=== PATIENT | female | born 1965 | race Caucasian/White ===

== ENCOUNTER → 2016-11-07 | Outpatient (CLI) | payer BC ==
[~2016-11-07] MED LIST: AMBIEN10 M1 PO; CYMBALTA60 MG PO; PERCOCET 325 MG1 TA2 PO; ZANTAC 300300 MG PO; ZYRTEC10 MG PO
== END ==
LOC: CARD 07:54
DX: R00.2 Palpitations (principal)

== ENCOUNTER → 2016-11-13 | Outpatient (CLI) | payer BC ==
[~2016-11-13] MED LIST changes: +CRESTOR10 M1 PO; +CYMBALTA20 M1 PO; +IBUPROFEN600 MG PO; +REXULTI0.5 MG PO; +VITAMIN D-32000 UNI1 PO; +ZANTAC 150150 MG PO
--- NOTE | ~2016-11-13 | ST ---
[place], [place] EXERCISE STRESS TEST REPORT NAME[facility]: [id number] UNIT #: [id number] ROOM: DOCTOR: BRIDGET ROSE MD BIRTHDATE: [birth year] DOS: 11/13/2016 The patient walked on the [place] protocol for about 4 minutes 30 seconds. Heart rate is 166. She is negative for chest pain. Normal heart rate and BP response. No EKG changes with exercise. No chest pain with exercise. No dysrhythmia with exercise. Blood pressure and heart rate response was normal with adequate double product. FINAL IMPRESSION: Normal exercise stress test without any EKG evidence of ischemia. Blood pressure and heart rate response was normal with adequate double product. The patient is stable with normal double product and normal EKG response. BRIDGET ROSE MD CM:STRESS:EXERCISE STRESS TEST REPORT [id number] BRIDGET ROSE MD
== END ==
LOC: CARD 03:31
DX: R00.2 Palpitations (principal); E78.4 Other hyperlipidemia

== ENCOUNTER 2017-08-04 14:36 | Emergency (ER) | payer BC ==
[~2017-08-04] VITALS: Ht 170.1 cm; Wt 90.7 kg
[2017-08-04] MEDS ORDERED: AMITRIPTYLINE25 MG PO (15:30)
[2017-08-04 15:48] LABS: BASO % 0.4 % (0.0-1.0); EOS # 0.2 10*3/uL (0.0-0.4); EOS % 2.2 % (1.0-4.0); HEMATOCRIT 37.6 % (37.0-47.0); HEMOGLOBIN 12.3 g/dl (12.0-16.0); LYMPH # 2.2 10*3/uL (1.3-4.4); LYMPH % 20.5 % (27.0-41.0); MEAN CELL VOLUME 87.9 fl (81.0-99.0); MEAN CORPUSCULAR HGB 28.7 pg (27.0-31.0); MEAN CORPUSCULAR HGB CONC 32.7 g/dl (33.0-37.0); MEAN PLATELET VOLUME 11.1 fl (9.6-12.3); MONO # 0.7 10*3/uL (0.1-1.0); MONO % 6.2 % (3.0-9.0); NEUT # 7.5 10*3/uL (2.3-7.9); NEUT % 70.3 % (47.0-73.0); PLATELET COUNT AUTOMATED 222 10*3/uL (130-400); RED BLOOD COUNT 4.28 10*6/uL (4.10-5.10); RED CELL DISTRI WIDTH 12.5 % (0-14.5); WHITE BLOOD COUNT 10.6 10*3/uL (4.8-10.8)
[2017-08-04 16:02] LABS: ALBUMIN 3.9 gm/dl (3.1-4.5); ALKALINE PHOSPHATASE 121 U/L (45-117); BUN 15 mg/dl (7-24); CHLORIDE 105 mmol/L (98-107); CREATININE 0.92 mg/dL (0.55-1.02); SGOT/AST 33 IU/L (3-35); SGPT/ALT 38 U/L (12-78); SODIUM 141 mmol/L (136-145); TOTAL PROTEIN 7.6 gm/dL (6.4-8.2)
[2017-08-04] MEDS ORDERED: ZOFRAN4 MG PO (17:16)
[2017-08-04] MEDS ORDERED: CLINDAMYCIN150 MG PO (17:16)
== END 2017-08-04 17:28 | disposition home or self-care (01) ==
LOC: ED 14:36
PROVIDERS: Nurse Practitioner Family
DX: K11.20 Sialoadenitis, unspecified (principal); Z88.0 Allergy status to penicillin; Z88.2 Allergy status to sulfonamides; Z88.6 Allergy status to analgesic agent; Z88.1 Allergy status to other antibiotic agents; Z79.899 Other long term (current) drug therapy

== ENCOUNTER 2019-06-15 18:33 | Emergency (ER) | payer BC ==
[~2019-06-15] VITALS: Ht 172.7 cm; Wt 97.1 kg
[~2019-06-15 18:33] MED LIST changes: +AMITRIPTYLINE25 MG PO; +CLINDAMYCIN150 MG PO; +ZOFRAN4 MG PO
[2019-06-15] MEDS ORDERED: PREDNISONE20 M1 PO (21:18)
== END 2019-06-15 21:18 | disposition home or self-care (01) ==
LOC: ED 18:33
PROVIDERS: Physician Assistant
DX: L50.9 Urticaria, unspecified (principal); R53.83 Other fatigue; R53.1 Weakness; R51 Headache; K21.9 Gastro-esophageal reflux disease without esophagitis; E78.00 Pure hypercholesterolemia, unspecified; Z79.899 Other long term (current) drug therapy; Z88.0 Allergy status to penicillin; Z88.2 Allergy status to sulfonamides; Z88.6 Allergy status to analgesic agent; Z88.1 Allergy status to other antibiotic agents

== ENCOUNTER → 2019-07-02 | Outpatient (CLI) | payer BC ==
[~2019-07-02] MED LIST changes: +MEDROL DOSEPAK4 MG PO; +PREDNISONE20 M1 PO
[2019-07-03 11:11] LABS: ANTI-DSDNA ANTIBODIES 096339 5 IU/mL (0-9); ANTI-RNP ANTIBODIES 0.3 AI (0.0-0.9); SJOGREN ANTI-SS-A <0.2 AI (0.0-0.9); SJOREN AB, ANTI-SS-B <0.2 AI (0.0-0.9)
[2019-07-03 12:07] LABS: COMPLEMENT C4 001834 23 mg/dL (14-44)
[2019-07-03 16:09] LABS: ATYPICAL PANCA <1:20 titer (Neg:<1:20); CYTOPLASMIC (C-ANCA) <1:20 titer (Neg:<1:20)
[2019-07-03 17:11] LABS: RHEUMATOID ARTHRITIS FACTOR <10.0 IU/mL (0.0-13.9)
[2019-07-05 21:06] LABS: IMMUNOGLOBULIN IgE 002170 10 IU/mL (6-495)
[2019-07-06 02:06] LABS: TRYPTASE 004280 6.9 ug/L (2.2-13.2)
== END | disposition home or self-care (01) ==
LOC: LAB 15:50
PROVIDERS: Allergy & Immunology
DX: M35.9 Systemic involvement of connective tissue, unspecified (principal); L50.8 Other urticaria

== ENCOUNTER 2019-07-07 02:55 | Emergency (ER) | payer BC ==
[~2019-07-07] VITALS: Ht 172.7 cm; Wt 97.1 kg
[~2019-07-07 02:55] MED LIST changes: -MEDROL DOSEPAK4 MG PO
[2019-07-07] MEDS ORDERED: MEDROL DOSEPAK4 MG PO (05:51)
[2019-07-21] MEDS ORDERED: MEDROL DOSEPAK4 MG PO (10:44)
== END 2019-07-07 06:16 | disposition home or self-care (01) ==
LOC: ED 02:55
DX: L50.9 Urticaria, unspecified (principal); Z98.890 Other specified postprocedural states; Z90.49 Acquired absence of other specified parts of digestive tract; Z79.899 Other long term (current) drug therapy; Z88.0 Allergy status to penicillin; Z88.2 Allergy status to sulfonamides; Z88.6 Allergy status to analgesic agent; Z88.1 Allergy status to other antibiotic agents

== ENCOUNTER → 2019-07-21 | Emergency (ER) | payer BC ==
[~2019-07-21] VITALS: Ht 172.7 cm; Wt 99.3 kg
[~2019-07-21] MED LIST changes: +MEDROL DOSEPAK4 MG PO
== END ==
LOC: ED 07:19
DX: L50.1 Idiopathic urticaria (principal); K21.9 Gastro-esophageal reflux disease without esophagitis; E78.00 Pure hypercholesterolemia, unspecified; Z88.0 Allergy status to penicillin; Z88.2 Allergy status to sulfonamides; Z88.6 Allergy status to analgesic agent; Z88.1 Allergy status to other antibiotic agents; Z79.899 Other long term (current) drug therapy

== ENCOUNTER → 2019-08-11 | Outpatient (CLI) | payer BC | END | disposition home or self-care (01) | LOC: RAD 09:10 | DX: S00.93XA Contusion of unspecified part of head, initial encounter (principal); S00.10XA Contusion of unspecified eyelid and periocular area, initial encounter; W01.198A Fall on same level from slipping, tripping and stumbling with subsequent striking against other object, initial encounter; G89.11 Acute pain due to trauma ==

== ENCOUNTER 2019-08-18 22:02 | Inpatient (IN) | payer BC ==
[~2019-08-18] VITALS: Ht 172.7 cm; Wt 100.7 kg
[2019-08-18 22:05] VITALS: BP 114/49
[2019-08-18 23:20] LABS: BASO % 0.2 % (0.0-1.0); EOS % 0.3 % (1.0-4.0); HEMOGLOBIN 13.3 g/dl (12.0-16.0); LYMPH # 2.1 10*3/uL (1.3-4.4); LYMPH % 21.4 % (27.0-41.0); MEAN CELL VOLUME 89.8 fl (81.0-99.0); MEAN CORPUSCULAR HGB 27.8 pg (27.0-31.0); MEAN CORPUSCULAR HGB CONC 30.9 g/dl (33.0-37.0); MEAN PLATELET VOLUME 9.9 fl (9.6-12.3); MONO # 0.4 10*3/uL (0.1-1.0); MONO % 3.7 % (3.0-9.0); NEUT # 7.1 10*3/uL (2.3-7.9); NEUT % 73.2 % (47.0-73.0); PLATELET COUNT AUTOMATED 209 10*3/uL (130-400); RED BLOOD COUNT 4.79 10*6/uL (4.10-5.10); RED CELL DISTRI WIDTH 13.4 % (0-14.5); WHITE BLOOD COUNT 9.7 10*3/uL (4.8-10.8)
[2019-08-18 23:26] VITALS: BP 100/56
[2019-08-18 23:40] LABS: ALBUMIN 3.6 gm/dl (3.1-4.5); ALKALINE PHOSPHATASE 107 U/L (45-117); BUN 20 mg/dl (7-24); CHLORIDE 108 mmol/L (98-107); CREATININE 0.89 mg/dL (0.55-1.02); POTASSIUM 3.7 mmol/L (3.5-5.1); SGOT/AST 17 IU/L (3-35); SGPT/ALT 39 U/L (12-78); SODIUM 140 mmol/L (136-145); TOTAL PROTEIN 6.8 gm/dL (6.4-8.2)
[2019-08-19] VITALS: BP 117/65
[2019-08-19] MEDS ORDERED: XYZAL5 M1 PO (00:38)
[2019-08-19] MEDS ORDERED: ATARAX,VISTARIL50 MG PO (00:39)
[2019-08-19 04:00] VITALS: BP 106/64
[2019-08-19 05:56] LABS: BUN 17 mg/dl (7-24); CHLORIDE 110 mmol/L (98-107); CHOLESTEROL 171 mg/dL (<200); CREATININE 0.81 mg/dL (0.55-1.02); HDL CHOLESTEROL 86 mg/dl (40-60); LDL CHOLESTEROL 74 mg/dL (9-159); PHOSPHOROUS 2.8 mg/dL (2.5-4.9); POTASSIUM 4.4 mmol/L (3.5-5.1); SODIUM 140 mmol/L (136-145); TRIGLYCERIDES 54 mg/dl (<150); VLDL CHOLESTEROL 11 mg/dL (6-40)
[2019-08-19 07:08] LABS: HEMATOCRIT 39.1 % (37.0-47.0); HEMOGLOBIN 12.2 g/dl (12.0-16.0); MEAN CELL VOLUME 88.7 fl (81.0-99.0); MEAN CORPUSCULAR HGB 27.7 pg (27.0-31.0); MEAN CORPUSCULAR HGB CONC 31.2 g/dl (33.0-37.0); MEAN PLATELET VOLUME 10.5 fl (9.6-12.3); PLATELET COUNT AUTOMATED 263 10*3/uL (130-400); RED BLOOD COUNT 4.41 10*6/uL (4.10-5.10); RED CELL DISTRI WIDTH 13.4 % (0-14.5); WHITE BLOOD COUNT 9.5 10*3/uL (4.8-10.8)
[2019-08-19 08:00] VITALS: BP 107/55
[2019-08-19 08:26] LABS: PLATELET SUFFICIENCY NORMAL (NORMAL); TOTAL CELLS COUNTED 100 #CELLS
[2019-08-19 12:00] VITALS: BP 108/58
[2019-08-19 16:00] VITALS: BP 109/58
[2019-08-19 20:00] VITALS: BP 117/62
[2019-08-20] VITALS: BP 104/53
[2019-08-20 04:00] VITALS: BP 106/56
[2019-08-20 05:06] LABS: BASO % 0.1 % (0.0-1.0); HEMATOCRIT 36.6 % (37.0-47.0); HEMOGLOBIN 11.5 g/dl (12.0-16.0); LYMPH # 1.2 10*3/uL (1.3-4.4); LYMPH % 8.7 % (27.0-41.0); MEAN CELL VOLUME 89.5 fl (81.0-99.0); MEAN CORPUSCULAR HGB 28.1 pg (27.0-31.0); MEAN CORPUSCULAR HGB CONC 31.4 g/dl (33.0-37.0); MEAN PLATELET VOLUME 10.3 fl (9.6-12.3); MONO # 0.3 10*3/uL (0.1-1.0); MONO % 2.1 % (3.0-9.0); NEUT # 11.9 10*3/uL (2.3-7.9); NEUT % 87.6 % (47.0-73.0); PLATELET COUNT AUTOMATED 275 10*3/uL (130-400); RED BLOOD COUNT 4.09 10*6/uL (4.10-5.10); RED CELL DISTRI WIDTH 13.4 % (0-14.5); WHITE BLOOD COUNT 13.6 10*3/uL (4.8-10.8)
[2019-08-20 05:19] LABS: BUN 16 mg/dl (7-24); CHLORIDE 113 mmol/L (98-107); CREATININE 0.76 mg/dL (0.55-1.02); POTASSIUM 3.7 mmol/L (3.5-5.1); SODIUM 144 mmol/L (136-145)
[2019-08-20 08:00] VITALS: BP 110/70
[2019-08-20] MEDS ORDERED: PREDNISONE10 MG PO (08:38)
[2019-08-20] MEDS ORDERED: PEPCID40 MG PO (08:38)
== END 2019-08-20 09:38 | disposition home or self-care (01) | DRG 607 ==
LOC: ED 22:02 → ICCU 22:55 → EDHOLD 22:55 → ICCU 23:57
PROVIDERS: Internal Medicine; Physician Assistant; ADMIT Family Medicine
DX: L50.1 Idiopathic urticaria (principal); F33.9 Major depressive disorder, recurrent, unspecified; E87.8 Other disorders of electrolyte and fluid balance, not elsewhere classified; R09.89 Other specified symptoms and signs involving the circulatory and respiratory systems; K21.9 Gastro-esophageal reflux disease without esophagitis; F41.9 Anxiety disorder, unspecified; E78.5 Hyperlipidemia, unspecified; R73.9 Hyperglycemia, unspecified; R73.03 Prediabetes; E83.41 Hypermagnesemia; D64.9 Anemia, unspecified; R11.0 Nausea; Z88.0 Allergy status to penicillin; Z88.2 Allergy status to sulfonamides; Z88.6 Allergy status to analgesic agent; Z88.1 Allergy status to other antibiotic agents; Z90.49 Acquired absence of other specified parts of digestive tract; Z82.49 Family history of ischemic heart disease and other diseases of the circulatory system; Z82.3 Family history of stroke; Z82.0 Family history of epilepsy and other diseases of the nervous system; Z79.899 Other long term (current) drug therapy; D72.829 Elevated white blood cell count, unspecified; R00.0 Tachycardia, unspecified

== ENCOUNTER → 2019-08-27 | Outpatient (CLI) | payer BC ==
[~2019-08-27] MED LIST changes: +ATARAX,VISTARIL50 MG PO; +PEPCID40 MG PO; +PREDNISONE10 MG PO; +XYZAL5 M1 PO
== END | disposition home or self-care (01) ==
LOC: RAD 14:16
DX: M25.531 Pain in right wrist (principal)

== ENCOUNTER → 2019-10-08 | Outpatient (CLI) | payer BC | END | disposition home or self-care (01) | LOC: LAB 13:46 | PROVIDERS: Nurse Practitioner Family | DX: L50.9 Urticaria, unspecified (principal) ==

== ENCOUNTER 2019-10-16 11:45 | Emergency (ER) | payer BC ==
[2019-10-16 13:02] LABS: EOS % 0.6 % (1.0-4.0); HEMATOCRIT 36.8 % (37.0-47.0); HEMOGLOBIN 11.9 g/dl (12.0-16.0); LYMPH # 0.9 10*3/uL (1.3-4.4); MEAN CELL VOLUME 90.4 fl (81.0-99.0); MEAN CORPUSCULAR HGB 29.2 pg (27.0-31.0); MEAN CORPUSCULAR HGB CONC 32.3 g/dl (33.0-37.0); MEAN PLATELET VOLUME 10.4 fl (9.6-12.3); MONO # 0.2 10*3/uL (0.1-1.0); MONO % 2.5 % (3.0-9.0); NEUT # 5.2 10*3/uL (2.3-7.9); NEUT % 82.4 % (47.0-73.0); PLATELET COUNT AUTOMATED 219 10*3/uL (130-400); RED BLOOD COUNT 4.07 10*6/uL (4.10-5.10); RED CELL DISTRI WIDTH 14.5 % (0-14.5); WHITE BLOOD COUNT 6.3 10*3/uL (4.8-10.8)
[2019-10-16 13:16] LABS: ALBUMIN 3.5 gm/dl (3.1-4.5); ALKALINE PHOSPHATASE 102 U/L (45-117); BUN 13 mg/dl (7-24); CHLORIDE 111 mmol/L (98-107); CREATININE 0.78 mg/dL (0.55-1.02); POTASSIUM 3.8 mmol/L (3.5-5.1); SGOT/AST 27 IU/L (3-35); SGPT/ALT 47 U/L (12-78); SODIUM 142 mmol/L (136-145); TOTAL PROTEIN 6.5 gm/dL (6.4-8.2)
[2019-10-16 13:35] LABS: BILIRUBIN NEGATIVE (NEGATIVE); BLOOD NEGATIVE (NEGATIVE); CLARITY CLEAR (CLEAR); COLOR YELLOW (YELLOW); GLUCOSE NEGATIVE (NEGATIVE); KETONE NEGATIVE (NEGATIVE)
[2019-10-16 13:36] LABS: LEUKO ESTERASE NEGATIVE (NEGATIVE); NITRITE NEGATIVE (NEGATIVE); UROBILINOGEN 0.2 E.U./dl (0.2-1.0)
[2019-10-16 13:40] LABS: BACTERIA TRACE
[2019-10-16] MEDS ORDERED: PREDNISONE20 M1 PO (14:11)
== END 2019-10-16 14:12 | disposition home or self-care (01) ==
LOC: ED 11:45
PROVIDERS: Emergency Medicine
DX: T78.40XA Allergy, unspecified, initial encounter (principal); K21.9 Gastro-esophageal reflux disease without esophagitis; F41.9 Anxiety disorder, unspecified; E78.5 Hyperlipidemia, unspecified; E78.00 Pure hypercholesterolemia, unspecified; Z88.0 Allergy status to penicillin; Z88.2 Allergy status to sulfonamides; Z88.5 Allergy status to narcotic agent; Z79.899 Other long term (current) drug therapy; X58.XXXA Exposure to other specified factors, initial encounter

== ENCOUNTER → 2020-07-21 | Outpatient (CLI) | payer SELFPAY | END | disposition home or self-care (01) | LOC: COVID19 11:30 | PROVIDERS: ATTEND Internal Medicine | DX: Z20.828 Contact with and (suspected) exposure to other viral communicable diseases (principal) ==

== ENCOUNTER → 2020-08-31 | Outpatient (CLI) | payer OTHER | END | disposition home or self-care (01) | LOC: COVID19 10:21 | PROVIDERS: ATTEND Nurse Practitioner Family | DX: Z20.822 Contact with and (suspected) exposure to COVID-19 (principal) ==

== ENCOUNTER → 2021-05-15 | Outpatient (CLI) | payer OTHER | END | disposition home or self-care (01) | LOC: COVID19 15:18 | PROVIDERS: ATTEND Internal Medicine | DX: U07.1 COVID-19 (principal) ==

== ENCOUNTER → 2024-09-17 | Outpatient (CLI) | payer OTHER | END | disposition home or self-care (01) | LOC: RAD 09:41 | PROVIDERS: ATTEND Chiropractor Orthopedic | DX: S39.012A Strain of muscle, fascia and tendon of lower back, initial encounter (principal); M54.50 Low back pain, unspecified; M43.8X5 Other specified deforming dorsopathies, thoracolumbar region; M48.061 Spinal stenosis, lumbar region without neurogenic claudication; M47.817 Spondylosis without myelopathy or radiculopathy, lumbosacral region; M25.78 Osteophyte, vertebrae; X58.XXXA Exposure to other specified factors, initial encounter; Y93.89 Activity, other specified; Y92.89 Other specified places as the place of occurrence of the external cause; Y99.8 Other external cause status ==